=== PATIENT | male | born 1935 | race Caucasian/White ===

== ENCOUNTER 2021-03-27 12:41 | Outpatient (CLI) | payer BC | END 2021-03-27 12:42 | disposition home or self-care (01) | LOC: CSHCT 12:41 | PROVIDERS: ATTEND Urology | DX: C67.9 Malignant neoplasm of bladder, unspecified (principal); N28.9 Disorder of kidney and ureter, unspecified; K57.90 Diverticulosis of intestine, part unspecified, without perforation or abscess without bleeding; N40.0 Benign prostatic hyperplasia without lower urinary tract symptoms | CPT/HCPCS: 74176 ==